=== PATIENT | male | born 1940 ===

== ENCOUNTER 2017-02-17 15:46 | Emergency (ER) | payer MEDICARE ==
[~2017-02-17] VITALS: Ht 182.9 cm; Wt 81.6 kg
[2017-02-17 16:48] LABS: Albumin 3.4 g/dL (3.4-5.0); Anion Gap 9 (5-15); Basophils # (auto) 0 uL; Basophils % (auto) 0.1 % (0.0-2.0); Blood Urea Nitrogen 17 mg/dL (7-18); Calcium 8.8 mg/dL (8.5-10.1); Carbon Dioxide 23 mmol/L (21-32); Chloride 108 mmol/L (98-107); Eosinophils # (auto) 0 uL; Eosinophils % (auto) 0.3 % (0.0-7.0); Glucose 146 mg/dL (74-106); Hemoglobin 14.5 g/dL (13.5-17.5); Lymphocytes # (auto) 0.2 uL; Lymphocytes % (auto) 5.6 % (10.0-50.0); Mean Corpuscular Hemoglobin 31.8 pg (28.0-32.0); Mean Corpuscular Hgb Conc. 33.8 g/dL (32.0-36.0); Mean Platelet Volume 8.2 fL (6.9-10.8); Monocytes # (auto) 0 uL; Neutrophils # (auto) 2.7 uL; Nucleated Red Blood Cells % 0.2 %; Platelet Count (auto) 110 10^3/uL (140-450); Potassium 4.3 mmol/L (3.5-5.1); Red Cell Distribution Width 14.3 % (11.8-14.3); Sodium 140 mmol/L (136-145); White Blood Cell 2.9 10^3/uL (4.4-10.8)
[2017-02-17 16:50] LABS: Aspartate Aminotransferase 250 U/L (15-37); BUN/Creatinine Ratio 16.3; GFR African American 90 mL/min; GFR Non-African American 74 mL/min
[2017-02-17 16:55] LABS: Lactic Acid w/Reflex 3.2 mmol/L (0.4-2.0)
[2017-02-17 16:56] LABS: Alkaline Phosphatase 129 U/L (45-117); Bilirubin, Total 6.3 mg/dL (0.2-1.0); Total Protein 6.8 g/dL (6.4-8.2)
[2017-02-17 17:17] LABS: REFLEX LACTIC ACID YES OR NO YES
[2017-02-17 18:50] LABS: Urine Bilirubin 2+ (Negative); Urine Blood TRACE /uL (Negative); Urine Color Yellow (Yellow); Urine Glucose Normal (Normal); Urine Ketone Negative (Negative); Urine Mucus FEW (None Seen); Urine Nitrite POSITIVE (Negative); Urine RBC 1 /hpf (0 - 3); Urine pH 6.5 (5.0-8.0)
[2017-02-17] MEDS ORDERED: SODIUM CHLORIDE 0.9% 1,000 ML IV ONE (20:30)
[2017-02-17] MEDS ORDERED: ACETAMINOPHEN 650 MG RECT SUPP PR ONE (20:30)
[2017-02-17] MEDS ORDERED: SODIUM CHLORIDE 0.9% 500 ML IV ONE ×2 (20:30→22:00)
[2017-02-17] MEDS ORDERED: PIPERACILLIN-TAZOB 3.375GM 100 ML IV ONE ×2 (21:26→22:00)
[2017-02-17] MEDS ORDERED: VANCOMYCIN 1GM/250ML D5W 250 ML IV ONE (22:15)
[2017-02-17 23:54] VITALS: BP 108/73
== END 2017-02-18 00:18 | disposition short-term general hospital (02) ==
LOC: EDBD 15:46 → ER 15:56
DX: A41.9 Sepsis, unspecified organism (principal); R65.21 Severe sepsis with septic shock; K21.9 Gastro-esophageal reflux disease without esophagitis; N12 Tubulo-interstitial nephritis, not specified as acute or chronic; K80.20 Calculus of gallbladder without cholecystitis without obstruction
CPT/HCPCS: 36415; 51702; 74176; 80053; 81001; 82962; 83605; 83690; 84484; 85025; 87040; 93005; 96361; 96365; 96366; 96367; 99291; J2543; J3370; J7040